=== PATIENT | male | born 1940 | race Two or more races ===

== ENCOUNTER 2018-03-26 04:48 | Emergency (ER) | payer OTHER ==
[~2018-03-26] VITALS: Ht 160 cm; Wt 68.0 kg
[2018-03-26 04:49] VITALS: BP 186/89
--- NOTE | 2018-03-26 05:12 | PHYS DOC ---
Past Medical History Past Medical History: Diabetes-Type II Adult General Chief Complaint Chief Complaint: SORE THROAT HPI HPI Patient is a 78 year old male who presents with sore throat. This is been present for the past 3 days. Worse with swallowing. Patient has taken no medicines to help with this. Pain is moderate in intensity. No difficulty breathing. No feeling that food is getting hung up. He also complains of left knee and foot pain. These have been present for the past week. No trauma. No swelling except localized at the big toe as well as diffusely around in the knee. He denies any shortness of breath. He has taken no medicine to help with this discomfort. Walking and movement makes it worse. Nonweightbearing and holding still makes it better. There has been no redness, no fever. He is a diabetic patient however he has not been taking medicines for some time. [] Review of Systems Review of Systems Constitutional: Denies fever or chills [] Eyes: Denies change in visual acuity, redness, or eye pain [] HENT: Denies nasal congestion , see history of present illness[] Respiratory: Denies cough or shortness of breath [] Cardiovascular: No chest pain or palpitations[] GI: Denies abdominal pain, nausea, vomiting, bloody stools or diarrhea [] : Denies dysuria or hematuria [] Musculoskeletal: See history of present illness[] Integument: Denies rash or skin lesions [] Neurologic: Denies headache, focal weakness or sensory changes [] Endocrine: Denies polyuria or polydipsia [] All other systems were reviewed and found to be within normal limits, except as documented in this note. Current Medications Current Medications Current Medications Medications (Trade) Dose Ordered Sig/Jerrod Start Time Stop Time Status Last Admin Dose Admin Ibuprofen (Motrin) 600 mg 1X ONCE 03/26/18 05:30 03/26/18 05:31 DC 03/26/18 05:30 600 MG Allergies Allergies Allergies Coded Allergies Type Severity Reaction Last Updated Verified No Known Drug Allergies 03/26/18 No Physical Exam Physical Exam Constitutional: Well developed, well nourished, no acute distress, non-toxic appearance. [] HENT: Normocephalic, atraumatic, bilateral external ears normal, oropharynx moist, no oral exudates, uvula is midline, no trismus,, nose normal. [] Eyes: PERRLA, EOMI, conjunctiva normal, no discharge. [] Neck: Normal range of motion, no tenderness, supple, no stridor. Shotty anterior chain cervical lymphadenopathy [] Cardiovascular:Heart rate regular rhythm, no murmur [] Lungs & Thorax: Bilateral breath sounds clear to auscultation [] Abdomen: Bowel sounds normal, soft, no tenderness, no masses, no pulsatile masses. [] Skin: Warm, dry, no erythema, no rash. [] Back: No tenderness, no CVA tenderness. [] Extremities: Tenderness is present at the base of the great toe. Mild erythema. Mild edema. No pain with axial loading. There is also some diffuse tenderness around the left knee, no varus or valgus laxity, negative drawer, negative Fish, no joint line tenderness. No patellar apprehension. No evidence of a knee effusion. No cyanosis, no clubbing, ROM intact, no edema. The joint above and below the knee as well as the great toe metatarsal were evaluated and were normal.[] Neurologic: Alert and oriented X 3, normal motor function, normal sensory function, no focal deficits noted. [] Psychologic: Affect normal, judgement normal, mood normal. [] Current Patient Data Vital Signs Vital Signs Date Time Temp Pulse Resp B/P (MAP) Pulse Ox O2 Delivery O2 Flow Rate FiO2 03/26/18 04:49 99.1 97 18 186/89 (121) 96 Room Air 99.1 Lab Values Laboratory Tests Test 03/26/18 05:18 03/26/18 05:25 Glucose (Fingerstick) 200 mg/dL (70-99) H Sodium Level 138 mmol/L (136-145) Potassium Level 3.2 mmol/L (3.5-5.1) L Chloride Level 100 mmol/L (98-107) Carbon Dioxide Level 26 mmol/L (21-32) Anion Gap 12 (6-14) Blood Urea Nitrogen 17 mg/dL (8-26) Creatinine 1.8 mg/dL (0.7-1.3) H Estimated GFR (Cockcroft-Gault) 36.8 Glucose Level 198 mg/dL (70-99) H Uric Acid Pending Calcium Level 9.1 mg/dL (8.5-10.1) Laboratory Tests 03/26/18 05:25 EKG EKG [] Radiology/Procedures Radiology/Procedures Left Foot x-ray shows no fracture, no dislocation no bony erosions. Left knee x-ray shows no acute fracture or dislocation[] Course & Med Decision Making Course & Med Decision Making Pertinent Labs and Imaging studies reviewed. (See chart for details) medical l decision making: Patient does not appear to have strep pharyngitis at this time given the negative strep test and lack of physical findings. He does appear to have gout given the elevated uric acid and those physical findings. There is no evidence of diabetic ketoacidosis. Patient has evidence of renal insufficiency and so we'll prescribe a lower dose NSAID as well as colchicine[] Dragon Disclaimer Dragon Disclaimer This electronic medical record was generated, in whole or in part, using a voice recognition dictation system. Departure Departure Impression: Primary Impression: Pharyngitis Additional Impression: Gout Disposition: HOME, SELF-CARE Condition: GOOD Patient Instructions: Gout, Viral Pharyngitis Additional Instructions: Drink plenty of fluids. Take the medication as prescribed. Follow-up with your regular doctor. If you do not have a regular doctor a list of local low-cost clinics will be provided for you. Return to the ER if worsening pain, worsening difficulty swallowing, or any other concerns. Scripts Colchicine (COLCRYS) 0.6 Mg Tablet 0.6 MG PO PRN Q1HR, #3 TAB Take 2 tablets when you get the medicine, then 1 tablet an hour later Prov: SWETHA LEWIS DO 03/26/18 Meloxicam (MELOXICAM) 7.5 Mg Tablet 7.5 MG PO DAILY, #20 TAB Prov: SWETHA LEWIS DO 03/26/18 Problem Qualifiers Primary Impression: Pharyngitis Pharyngitis/tonsillitis etiology: unspecified etiology Qualified Codes: J02.9 - Acute pharyngitis, unspecified Additional Impression: Gout Gout site: foot Gout etiology: unspecified cause Chronicity: acute Laterality: left Qualified Codes: M10.9 - Gout, unspecified SWETHA LEWIS DO Mar 26, 2018 05:12
[2018-03-26] MEDS ORDERED: IBUPROFEN 600 MG TABLET. PO ONE (05:30)
[2018-03-26 05:39] LABS: BASO # 0.1 x10^3/uL (0.0-0.2); BASO % 1 % (0-3); EOS # 0.3 x10^3/uL (0.0-0.7); EOS % 3 % (0-3); HEMATOCRIT 44.8 % (39.0-53.0); HEMOGLOBIN 15.6 g/dL (13.0-17.5); LYMPH % 18 % (24-48); MEAN CORPUSCULAR HEMOGLOBIN 30 pg (25-35); MEAN CORPUSCULAR HGB CONC 35 g/dL (31-37); MEAN CORPUSCULAR VOLUME 86 fL (79-100); MONO # 0.8 x10^3/uL (0.0-1.1); MONO % 8 % (0-9); NEUT # 7.9 x10^3uL (1.8-7.7); NEUT % 71 % (31-73); PLATELET COUNT 269 x10^3/uL (140-400); RED BLOOD COUNT 5.22 x10^6/uL (4.30-5.70); RED CELL DISTRIBUTION WIDTH 13.2 % (11.5-14.5); WHITE BLOOD COUNT 11.2 x10^3/uL (4.0-11.0)
[2018-03-26 05:55] LABS: CALCIUM 9.1 mg/dL (8.5-10.1); CREATININE 1.8 mg/dL (0.7-1.3); GFR 36.8; POTASSIUM 3.2 mmol/L (3.5-5.1)
[2018-03-26 05:58] LABS: URIC ACID 8.5 mg/dL (3.5-7.2)
[2018-03-26] MEDS ORDERED: COLC0.6T34 PO (06:17)
[2018-03-26] MEDS ORDERED: MELO7.5T29 PO (06:17)
--- NOTE | 2018-03-26 06:24 | RAD ---
Left knee 3 views, left foot 3 views. HISTORY: Pain and swelling Left foot 3 views were taken of the left foot. There is not evidence of an acute fracture or osseous abnormality. There is mild soft tissue swelling of the foot. Left knee 3 views were taken of the left knee. There is no fracture or acute osseous abnormality. There is a joint effusion. IMPRESSION: 1. No acute osseous abnormality noted in the left knee. 2. Left knee joint effusion. 3. No fracture or acute osseous abnormality noted in the left foot. Electronically signed by: Jacky Roach MD (03/26/2018 6:20 AM) [facility]
== END 2018-03-26 06:22 | disposition home or self-care (01) ==
LOC: ER 04:48
DX: J02.9 Acute pharyngitis, unspecified (principal); M10.9 Gout, unspecified; M25.462 Effusion, left knee; E11.9 Type 2 diabetes mellitus without complications
CPT/HCPCS: 36415; 73562; 73630; 80048; 82962; 84550; 85025; 87070; 87880; 99284-25

== ENCOUNTER → 2020-06-12 | Outpatient (CLI) | payer MEDICARE, MEDICAID ==
[~2020-06-12] MED LIST: COLC0.6T34 PO; MELO7.5T29 PO; REGADENOSON 0.4 MG/5 ML DISP.SYRIN. IV ONE
--- NOTE | 2020-06-12 11:01 | CARD ---
MR#: [id number] Date of Study: 06/12/2020 Ordering Physician: JAMES PLASENCIA, Referring Physician: JAMES PLASENCIA, Tech: Kaylah Desean, [facility] APPROVED REPORT EXAM: Two-dimensional and M-mode echocardiogram with Doppler and color Doppler. Other Information Quality : AverageHR: 68bpm INDICATION Chest Pain RISK FACTORS Hypertension 2D DIMENSIONS RVDd3.1 (2.9-3.5cm)Left Atrium(2D)3.6 (1.6-4.0cm) IVSd1.0 (0.7-1.1cm)Aortic Root(2D)2.9 (2.0-3.7cm) LVDd5.2 (3.9-5.9cm)LVOT Diameter2.1 (1.8-2.4cm) PWd1.1 (0.7-1.1cm)LVDs3.2 (2.5-4.0cm) FS (%) 38.9 %SV88.4 ml LVEF(%)61.0 (>50%) Aortic Valve AoV Peak Bo.149.2cm/sAoV VTI35.8cm AO Peak GR.8.9mmHgLVOT Peak Bo.82.9cm/s LVOT VTI 20.92cmAO Mean GR.5mmHg JACEY (VMAX)1.07dk4YLM (VTI)2.00cm2 Mitral Valve MV E Kloortla79.5cm/sMV DECEL PZFI284ha MV A Sglrmmxg16.8cm/sMV OMT83or E/A Ratio0.9MVA (PHT)3.39cm2 TDI E/Lateral E'9.2E/Medial E'12.6 Pulmonary Valve PV Peak Dcnhzubh66.9cm/sPV Peak Grad.3mmHg Tricuspid Valve TR P. Usabupny396rn/sRAP PDQQMSJM0mqDc TR Peak Gr.16ihPuEZNM44wwLe Pulmonary Vein S1 Jdazocos27.6cm/sD2 Mkniabkb05.7cm/s PVa rdsfmdwc031idhg LEFT VENTRICLE The left ventricle is normal size. There is borderline to mild concentric left ventricular hypertroph y. The left ventricular systolic function is normal. The Ejection Fraction is 55%. There is normal LV segmental wall motion. Transmitral Doppler flow pattern is Grade I-abnormal relaxation pattern. RIGHT VENTRICLE The right ventricle is normal size. There is normal right ventricular wall thickness. The right ventr icular systolic function is normal. ATRIA The left atrium size is normal. The right atrium size is normal. The interatrial septum is intact wit h no evidence for an atrial septal defect or patent foramen ovale as noted on 2-D or Doppler imaging. AORTIC VALVE The aortic valve is normal in structure and function. Doppler and Color Flow revealed no significant aortic regurgitation. There is no significant aortic valvular stenosis. Calculated aortic valve area is 2.09 cm2 with maximum pressure gradient of 9 mmHg and mean pressure gradient of 5 mmHg. MITRAL VALVE The mitral valve is normal in structure and function. There is no evidence of mitral valve prolapse. There is no mitral valve stenosis. Doppler and Color-flow revealed trace mitral regurgitation. TRICUSPID VALVE The tricuspid valve is normal in structure and function. Doppler and Color Flow revealed trace tricus pid regurgitation with an estimated PAP of 15 mmHg. There is no tricuspid valve stenosis. PULMONIC VALVE The pulmonic valve is not well visualized. Doppler and Color Flow revealed trace pulmonic valvular re gurgitation. GREAT VESSELS The aortic root is normal in size. The IVC is normal in size and collapses >50% with inspiration. PERICARDIAL EFFUSION There is no evidence of significant pericardial effusion. Critical Notification Critical Value: No <Conclusion> The left ventricular systolic function is normal. The Ejection Fraction is 55%. There is normal LV segmental wall motion. Transmitral Doppler flow pattern is Grade I-abnormal relaxation pattern. Trace mitral regurgitation. Trace tricuspid regurgitation with an estimated PAP of 15 mmHg. There is no evidence of significant pericardial effusion. Signed by : Mariano Atkins, Electronically Approved : 06/12/2020 11:01:29
--- NOTE | 2020-06-12 14:32 | RAD ---
MR#: [id number] Date of Study: 06/12/2020 Ordering Physician: JAMES PLASENCIA, Referring Physician: MARIELA BERNSTEIN Tech: RT Asher Verduzco) (N) APPROVED REPORT Test Type: Pharmacological Stress Nurse/Tech: Mackenzie William RN Test Indications: chest pain Cardiac History: HTN Medications: See Electronic Medical Record Medical History: See Electronic Medical Record Resting ECG: SR Resting Heart Rate: 62 bpm Resting Blood Pressure: 177/65mmHg Pretest Chest Pain: None Nurse/Tech Notes lungs CTA, S1S2 Consent: The procedure was explained to the patient in lay terms. Informed consent was witnessed. Jin eout was entered into Net 263. History and Stress Test performed by RT Asher Verduzco) (N) Pharm. Details Pharmacologic stress testing was performed using 0.4mg per 5ml of regadenoson given intravenously ove r 7-10 seconds. Stress Symptoms No chest pain or symptoms. POST EXERCISE Reason for Termination: Infusion complete Max HR: 82 bpm Max Blood Pressure: 150/60mmHg Blood Pressure response to exercise: Normal blood pressure response during stress. Heart Rate response to exercise: Normal response Chest Pain: No. Arrhythmia: No. ST Change: No. INTERPRETATION Stress EKG Conclusion: Baseline EKG showed sinus rhythm. No ischemic changes at peak stress. No arr hythmias. Imaging Protocol IMAGE PROTOCOL: Rest Tc-99m/stress Tc-99m 1 day Rest: Stress: Viability: Radiopharm.Tc99m GggmqwyfeSt16y Sestamibi Nihd72bHj 32.8mCi Duration 13min. 13min. Img Date 06/12/2020 06/12/2020 Inj-Img Xulj76fou. 60min. Rest Admin Site:IV - Left AntecubitalAdministrator:RT Bran (R)(N) Stress Admin Site: IV - Left AntecubitalAdministrator: RT Dax (R)(N) STRESS DATA End Diast. Vol.82.0mlLVEDV index BSA48.0ml End Syst. Vol.26.0mlLVESV index BSA15.0ml Myocardial Rgdv400.0gEject. Atwtocno21.0% Stress Scores Regional WT2.00Summed WT4.00 Regional WM0.00Summed WM3.00 Study quality was good. Left Ventricular size was Normal at Rest and Stress. Lung uptake was . Left Ventricular ejection fraction is 74%. The rest and stress images show normal perfusion, normal contraction and thickening. LV Perf. Quant 17 Seg. SSS3.00 17 Seg. SRS1.00 17 Seg. SDS2.00 Stress Defect Extent (% LAD)0.00Rest Defect Extent (% LAD)0.00Rev. Defect Extent (% LAD)0.00 Stress Defect Extent (% LCX) 7.50Rest Defect Extent (% LCX)5.00Rev. Defect Extent (% LCX)6.30 Stress Defect Extent (% RCA)0.00Rest Defect Extent (% RCA)0.00Rev. Defect Extent (% RCA)0.00 Stress Defect Extent (% BURTON)1.70Rest Defect Extent (% BURTON)0.90Rev. Defect Extent (% BURTON)1.30 Conclusion 1. Regadenoson cardioisotope stress test did not show any evidence of ischemia or infarct. 2. Normal left ventricular systolic function with ejection fraction calculated at 74%. 3. Low risk for cardiac events. Signed by : Mariano Atkins, Electronically Approved : 06/12/2020 14:31:41
== END ==
LOC: NM 08:41
PROVIDERS: ATTEND Internal Medicine Cardiovascular Disease
DX: I51.7 Cardiomegaly (principal)
CPT/HCPCS: 78452; 93017; 93306; A9500; J2785